=== PATIENT | female | born 1950 | race Caucasian/White ===

== ENCOUNTER 2016-11-02 14:53 | Emergency (ER) ==
[2016-11-02 15:05] VITALS: BP 132/82; TEMP 98.3; BMI 51.1
--- NOTE | 2016-11-02 15:42 | ED.PDOC ---
General ED Provider: Dr. ALAINA MCCOY Chief Complaint: Diabetes Stated Complaint: Patient is on steroids and has DM which makes her blood glucose uncontrolled. She was given a prescription of insulin which she could not fill due to her insurance. Time Seen by Physician: 15:33 Mode of Arrival: Walk-In Information Source: Patient Exam Limitations: No limitations Primary Care Provider: MARIKA OLIVEIRA Nursing and Triage Documentation Reviewed and Agree: Yes Endocrine Complaint Exam - Diabetic Complication Complaint/Exam Onset/Duration: 3 days Symptoms Are: Still present Timing: Constant Aggravating: Reports: Recent illness Alleviating: Reports: None Review of Systems - Review Of Systems Constitutional: Reports: No symptoms Eyes: Reports: No symptoms Ears, Nose, Mouth, Throat: Reports: No symptoms Respiratory: Reports: No symptoms Cardiac: Reports: No symptoms GI: Reports: No symptoms : Reports: No symptoms Musculoskeletal: Reports: Joint pain Skin: Reports: No symptoms Neurological: Reports: Anxiety Endocrine: Reports: No symptoms Hematologic/Lymphatic: Reports: No symptoms All Other Systems: Reviewed and Negative Past Medical History - Past Medical History Endocrine: Reports: DM 2, Hypothyroid, Dyslipidemia Cardiovascular: Reports: Hypertension Respiratory: Reports: None Hematological: Reports: None Gastrointestinal: Reports: None Genitourinary: Reports: None Neuro/Psych: Reports: Anxiety Musculoskeletal: Reports: None, Arthritis Cancer: Reports: Other Last Menstrual Period: unknown Other Pertinent Past Medical History: 2009 KNEE REPLACEMENT, REVISION 2011, SHOULDER SURG - Surgical History General Surgical History: Reports: Orthopedic ( 2009 KNEE REPLACEMENT, REVISION 2011, SHOULDER SURG) - Family History Family History: Reports: Unknown - Social History Smoking Status: Former smoker Hx Substance Use: No Alcohol Screening: None Physical Exam - Physical Exam Appearance: Well-appearing, Obese Eyes: ISABEL, EOMI, Conjunctiva clear ENT: Ears normal, Nose normal, Oropharynx normal Respiratory: Airway patent, Breath sounds clear, Breath sounds equal, Respirations nonlabored Cardiovascular: RRR, Pulses normal, No rub, No murmur GI/: Soft, Nontender, No masses, Bowel sounds normal, No Organomegaly Musculoskeletal: Normal strength, ROM intact, No edema, No calf tenderness Skin: Warm, Dry, Normal color Neurological: Sensation intact, Motor intact, Reflexes intact, Cranial nerves intact, Alert, Oriented Psychiatric: Affect appropriate, Mood appropriate Critical Care Note - Critical Care Note Total Time (mins): 0 Course - Course Orders, Labs, Meds: Orders Category Date Time Status ED ACCUCHECK ASSESSMENT .ONCE EMERGENCY 11/02/16 15:33 Active Insulin Regular, Human [Humulin R] MEDS 11/02/16 15:44 Discontinued 8 unit SUBCUT ONCE STA Medications Discontinued Medications Generic Name Dose Route Start Last Admin Trade Name Freq PRN Reason Stop Dose Admin Insulin Human Regular 8 unit 11/02/16 15:44 11/02/16 15:53 Humulin R SUBCUT 11/02/16 15:45 8 unit ONCE STA Administration Vital Signs: Temp Pulse Resp BP Pulse Ox 11/02/16 14:54 98.3 F 68 20 132/82 95 Departure - Departure Time of Disposition: 15:35 Disposition: HOME SELF-CARE Discharge Problem: Hyperglycemia due to type 2 diabetes mellitus, Arthritis Instructions: Diabetic Hyperglycemia (ED) Condition: Stable Pt referred to PMD for follow-up: Yes Additional Instructions: Fill your insulin and use it as needed per your doctors instruction Follow up with PCP in 3 days Prescriptions: Insulin Regular, Human [Novolin R] 100 unit IJ TID PRN #10 ml PRN Reason: Hyperglycemica Allergies/Adverse Reactions: Allergies metformin Adverse Reaction (Verified 10/31/15 15:58) Home Medications: Ambulatory Orders Carvedilol [Coreg] 12.5 mg PO BIDWM 10/31/15 Glipizide [Glipizide Xl] 10 mg PO BIDWM 10/31/15 Insulin Glargine,Hum.rec.anlog [Lantus] 55 unit SUBCUT BEDTIME 10/31/15 Lisinopril [Zestril] 40 mg PO DAILY 10/31/15 Pravastatin Sodium [Pravachol] 40 mg PO DAILY 10/31/15 Rivaroxaban [Xarelto] 20 mg PO 1800 10/31/15 Citalopram Hydrobromide [Celexa] 20 mg PO DAILY 06/14/16 Docusate Sodium [Colace] 100 mg PO DAILY 06/14/16 Ergocalciferol (Vitamin D2) [Drisdol] 50,000 units PO TUFR 06/14/16 Gabapentin [Neurontin] 300 mg PO TID 06/14/16 L.acidoph,Paracasei, B.lactis [Probiotic] 1 each PO DAILY 06/14/16 Levothyroxine Sodium [Synthroid] 150 mcg PO QDAC 06/14/16 Protection-3 Fatty Acids/Fish Oil [Fish Oil 1,000 mg Softgel] 1 cap PO DAILY LAB 03/22 Pantoprazole Sodium [Protonix] 40 mg PO DAILY #30 tablet. 06/20/16 Insulin Regular, Human [Novolin R] 100 unit IJ TID PRN #10 ml 11/02/16 Disposition Discussed With: Patient
[2016-11-02] MEDS ORDERED: HUMULIN R SUBCUT STA (15:44)
== END 2016-11-02 16:35 | disposition home or self-care (01) ==
LOC: ED 14:53
DX: E11.65 Type 2 diabetes mellitus with hyperglycemia (principal); M19.90 Unspecified osteoarthritis, unspecified site; Z79.899 Other long term (current) drug therapy; Z79.4 Long term (current) use of insulin
CPT/HCPCS: 82962; 96372; 99283

== ENCOUNTER 2017-01-24 09:22 | Outpatient (CLI) ==
[2017-01-24 10:09] LABS: PROTHROMBIN TIME 14.3 SEC (9.3-11.0)
== END 2017-01-24 09:23 | disposition home or self-care (01) ==
LOC: LAB 09:22
PROVIDERS: ATTEND Internal Medicine
DX: Z51.81 Encounter for therapeutic drug level monitoring (principal); Z79.01 Long term (current) use of anticoagulants; I48.0 Paroxysmal atrial fibrillation
CPT/HCPCS: 36415; 85610

== ENCOUNTER 2017-02-07 09:12 | Outpatient (CLI) | END 2017-02-07 09:13 | disposition home or self-care (01) | LOC: LAB 09:12 | PROVIDERS: ATTEND Internal Medicine | DX: I48.0 Paroxysmal atrial fibrillation (principal) | CPT/HCPCS: 36415; 85610 ==

== ENCOUNTER 2017-02-14 11:01 | Outpatient (CLI) ==
[2017-02-14 11:54] LABS: PROTHROMBIN TIME 21.4 SEC (9.3-11.0)
== END 2017-02-14 11:02 | disposition home or self-care (01) ==
LOC: LAB 11:01
PROVIDERS: ATTEND Internal Medicine
DX: Z51.81 Encounter for therapeutic drug level monitoring (principal); Z79.01 Long term (current) use of anticoagulants; I48.0 Paroxysmal atrial fibrillation
CPT/HCPCS: 36415; 85610

== ENCOUNTER 2017-12-14 17:05 | Emergency (ER) ==
[2017-12-14 17:10] VITALS: BP 150/116; TEMP 98.2; BMI 50.5
[2017-12-14] MEDS: SODIUM CHLORIDE 1,000 ML IV STA (17:45)
[2017-12-14] MEDS: ZOFRAN 4 MG/2 ML IVP STA (17:45)
[2017-12-14] MEDS: DILAUDID IVP STA (17:45)
--- NOTE | 2017-12-14 17:55 | CT ---
EXAM: CT abdomen pelvis without contrast HISTORY: Abdominal pain with nausea and vomiting COMPARISON: None TECHNIQUE: Serial axial images of the abdomen pelvis were performed from the lung bases through the inferior pelvis without contrast. These were viewed in multiple planes. FINDINGS: Lung bases are clear. Evaluation is limited due to lack of contrast. The liver is diffusely low in attenuation. The gallb ladder has been resected. Kidneys are normal. The adrenal glands are normal. The spleen is unremar kable. The pancreas is unremarkable. The stomach is distended. The small bowel in the abdomen pelvis is unremarkable with mild hazy ground-glass surrounding a small bowel loop extending into the umbilical hernia. There is no evidence of obstruction. There is dive rticulosis without diverticulitis. The appendix is normal. The small bowel in the anterior right lo wer lobe demonstrates mild hazy ground-glass. The pelvis demonstrates no acute abnormality with nond istended urinary bladder. The osseous structures demonstrate multilevel degenerative disease of the spine. IMPRESSION: 1. There is a loop of small bowel extending into a fat-containing umbilical hernia with minimal grou nd-glass. There is no visualized obstruction. 2. Mild hazy ground-glass surrounding the small bowel in the right lower pelvis with minimal wall th ickening may represent a component of enteritis. 3. Hepatic steatosis. 4. Diverticulosis without diverticulitis.
--- NOTE | 2017-12-14 18:05 | ED.PDOC ---
General ED Provider: Dr. MAURICE HSU-ER Chief Complaint: Nausea/Vomiting Stated Complaint: this is my 3rd visit in 6 weeks for this Time Seen by Physician: 17:10 Mode of Arrival: Walk-In Information Source: Patient Exam Limitations: No limitations Nursing and Triage Documentation Reviewed and Agree: Yes Reviewed sepsis parameters & appropriate labs ordered?: Yes System Inflammatory Response Syndrome: Not Applicable Sepsis Protocol: For patient's 13 years and over: Temp is 96.8 and below OR 101 and greater Pulse >90 BPM Resp >20/minute Acutely Altered Mental Status Are patient's symptoms suggestive of a new infection, such as: -Pneumonia -Skin, Soft Tissue -Endocarditis -UTI -Bone, Joint Infection -Implantable Device -Acute Abdominal Infection -Wound Infection -Meningitis -Blood Stream Catheter Infection -Unknown GI Complaint Exam - Vomiting/Diarrhea Complaint/Exam Onset/Duration: 2 hrs Symptoms Are: Still present Initial Severity: Mild Current Severity: Moderate Associated Signs and Symptoms: Reports: Abdominal pain, Cramping Recent Positive Test: No Use of Oral Contraceptives: No Use of Depoprovera: No Compliant With Contraceptive Use: No Surgical Obstruction Risk Factors: Reports: Colicky abdominal pain, Prior abdominal surgery Related Surgical History: Reports: Cholecystectomy Abdominal Findings: Present: None Kussmaul Respirations Present: No Differential Diagnoses: Dehydration, Viral Gastroenteritis Review of Systems - Review Of Systems Constitutional: Reports: No symptoms Eyes: Reports: No symptoms Ears, Nose, Mouth, Throat: Reports: No symptoms Respiratory: Reports: No symptoms Cardiac: Reports: No symptoms GI: Reports: Abdominal pain, Nausea, Vomiting : Reports: No symptoms Musculoskeletal: Reports: No symptoms Skin: Reports: No symptoms Neurological: Reports: No symptoms Endocrine: Reports: No symptoms Hematologic/Lymphatic: Reports: No symptoms All Other Systems: Reviewed and Negative Past Medical History - Past Medical History Previously Healthy: No Endocrine: Reports: DM 2, Hypothyroid, Dyslipidemia Cardiovascular: Reports: Hypertension Respiratory: Reports: None Hematological: Reports: None Gastrointestinal: Reports: None Genitourinary: Reports: None Neuro/Psych: Reports: Anxiety Musculoskeletal: Reports: None, Arthritis Cancer: Reports: Other Last Menstrual Period: N/A Other Pertinent Past Medical History: 2009 KNEE REPLACEMENT, REVISION 2011, SHOULDER SURG - Surgical History General Surgical History: Reports: Orthopedic ( 2009 KNEE REPLACEMENT, REVISION 2011, SHOULDER SURG) - Family History Family History: Reports: Unknown - Social History Smoking Status: Former smoker Hx Substance Use: No Alcohol Screening: None - Immunizations Tetanus Shot up to Date: No Physical Exam - Physical Exam Appearance: Well-appearing, No pain distress, Well-nourished Pain Distress: Moderate Eyes: ISABEL ENT: Ears normal, Nose normal, Oropharynx normal Neck: Supple Respiratory: Airway patent, Breath sounds clear, Breath sounds equal, Respirations nonlabored Cardiovascular: RRR, Pulses normal, No rub, No murmur GI/: Soft, No masses, Tender, Bowel sounds hypoactive Musculoskeletal: Normal strength Skin: Warm, Dry, Normal color Neurological: Sensation intact, Motor intact, Reflexes intact, Cranial nerves intact, Alert, Oriented Psychiatric: Affect appropriate, Mood appropriate, Anxious Interpretation - Radiology Interpretation Radiology Interpretation By: Radiologist Radiology Results: Positive Exam Interpreted: CT Scan - EKG Interpretation Time of EKG #1: 18:06 Rate: Normal Rhythm: Other Ectopy: None Norton: NL ST Segment: Normal Interpretation: afib Re-Evaluation - Re-Evaluation Time of Re-Evaluation: 18:06 Status: Improved Vital Signs Stable: Yes Pain Level: 2 Appearance: NAD Lungs: Clear Skin: Warm and Dry Neuro: Alert and Oriented X3 CV: RRR Physician Notification - Case Discussed Physician Notified: dr greene Time of Notification: 18:13 Critical Care Note - Critical Care Note Total Time (mins): 0 Course - Course Hematology/Chemistry: 12/14/17 17:20 12/14/17 17:20 Orders, Labs, Meds: Lab Review 12/14/17 12/14/17 17:20 17:20 WBC 17.68 H RBC 5.48 H Hgb 15.5 Hct 44.8 MCV 81.8 MCH 28.3 MCHC 34.6 RDW Coeff of Michael 13.8 Plt Count 226 Immature Gran % (Auto) 0.4 Neut % (Auto) 86.2 Lymph % (Auto) 8.4 L Burt % (Auto) 4.2 Eos % (Auto) 0.6 Baso % (Auto) 0.2 Immature Gran # (Auto) 0.1 Neut # (Auto) 15.3 H Lymph # (Auto) 1.5 Burt # (Auto) 0.7 Eos # (Auto) 0.1 Baso # (Auto) 0.0 Sodium 139 Potassium 4.0 Chloride 111 H Carbon Dioxide 18 L Anion Gap 14.0 BUN 16 Creatinine 0.76 Estimated GFR (MDRD) 76.00 BUN/Creatinine Ratio 21.05 Glucose 195 H Calcium 10.0 Total Bilirubin 0.9 AST 50 H ALT 63 Alkaline Phosphatase 85 Total Creatine Kinase 64 Troponin I < 0.0100 Total Protein 7.5 Albumin 3.8 Globulin 3.7 Albumin/Globulin Ratio 1.03 Amylase 33 Lipase 17 Orders Category Date Time Status EKG-(ED ONLY) Stat CARDIO 12/14/17 17:13 Ordered IV [ED IV/MEDIPORT/POWERPORT] .ONCE EMERGENCY 12/14/17 17:14 Active AMYLASE Stat LAB 12/14/17 17:20 Completed CBC W/ AUTO DIFF Stat LAB 12/14/17 17:20 Completed COMPREHENSIVE METABOLIC PANEL Stat LAB 12/14/17 17:20 Completed CREATINE KINASE Stat LAB 12/14/17 17:20 Completed LIPASE Stat LAB 12/14/17 17:20 Completed TROPONIN I Stat LAB 12/14/17 17:20 Completed URINALYSIS C & S IF INDICATED Stat LAB 12/14/17 17:13 Uncollected 0.9 % Sodium Chloride [Saline Flush] MEDS 12/14/17 17:14 Ordered 1 syr IVF PRN PRN Hydromorphone HCl [Dilaudid] MEDS 12/14/17 17:14 Discontinued 1 mg IVP ONCE STA Ondansetron HCl/Pf [Zofran 4 mg/2 ml] MEDS 12/14/17 17:14 Discontinued 4 mg IVP ONCE STA Sodium Chloride 0.9% [Sodium Chloride] 1,000 ml MEDS 12/14/17 17:[address] ABDOMEN/PELVIS WO CONTRAST Stat RADS 12/14/17 17:15 Completed Medications Generic Name Dose Route Start Last Admin Trade Name Freq PRN Reason Stop Dose Admin Sodium Chloride 1 syr 12/14/17 17:14 Saline Flush IVF PRN PRN To flush IV Discontinued Medications Generic Name Dose Route Start Last Admin Trade Name Freq PRN Reason Stop Dose Admin Hydromorphone HCl 1 mg 12/14/17 17:14 12/14/17 17:45 Dilaudid IVP 12/14/17 17:15 1 mg ONCE STA Administration Sodium Chloride 1,000 mls @ 1,000 mls/hr 12/14/17 17:14 12/14/17 17:45 Sodium Chloride IV 12/14/17 18:13 1,000 mls/hr BOLUS STA Administration Ondansetron HCl 4 mg 12/14/17 17:14 12/14/17 17:45 Zofran 4 Mg/2 Ml IVP 12/14/17 17:15 4 mg ONCE STA Administration Vital Signs: Temp Pulse Resp BP Pulse Ox 12/14/17 17:06 98.2 F 94 H 16 150/116 H 96 Departure - Departure Time of Disposition: 18:14 Disposition: TSF SHORT-TRM HOSP Discharge Problem: Umbilical hernia without obstruction and without gangrene Instructions: Umbilical Hernia (ED) Condition: Good Pt referred to PMD for follow-up: Yes IPMP verified?: No Allergies/Adverse Reactions: Allergies metformin Adverse Reaction (Verified 12/14/17 17:10) Home Medications: Ambulatory Orders Carvedilol [Coreg] 12.5 mg PO BIDWM 10/31/15 Glipizide [Glipizide Xl] 10 mg PO BIDWM 10/31/15 Insulin Glargine,Hum.rec.anlog [Lantus] 55 unit SUBCUT BEDTIME 10/31/15 Lisinopril [Zestril] 40 mg PO DAILY 10/31/15 Pravastatin Sodium [Pravachol] 40 mg PO DAILY 10/31/15 Rivaroxaban [Xarelto] 20 mg PO 1800 10/31/15 Docusate Sodium [Colace] 100 mg PO DAILY 06/14/16 Ergocalciferol (Vitamin D2) [Drisdol] 50,000 units PO TUFR 06/14/16 Gabapentin [Neurontin] 300 mg PO TID 06/14/16 L.acidoph,Paracasei, B.lactis [Probiotic] 1 each PO DAILY 06/14/16 Levothyroxine Sodium [Synthroid] 150 mcg PO QDAC 06/14/16 Archbold-3 Fatty Acids/Fish Oil [Fish Oil 1,000 mg Softgel] 1 cap PO DAILY LAB 03/22 Pantoprazole Sodium [Protonix] 40 mg PO DAILY #30 tablet.dr 06/20/16 Insulin Regular, Human [Novolin R] 100 unit IJ TID PRN #10 ml 11/02/16 Duloxetine HCl [Cymbalta] 20 mg PO DAILY 12/14/17 Disposition Discussed With: Patient
== END 2017-12-14 18:36 | disposition short-term general hospital (02) ==
LOC: ED 17:05
DX: K42.9 Umbilical hernia without obstruction or gangrene (principal); R11.2 Nausea with vomiting, unspecified; R10.9 Unspecified abdominal pain; I10 Essential (primary) hypertension; E78.5 Hyperlipidemia, unspecified; E11.9 Type 2 diabetes mellitus without complications; E03.9 Hypothyroidism, unspecified; Z79.899 Other long term (current) drug therapy
CPT/HCPCS: 36415; 80053; 82150; 82550; 83690; 84484; 85025; 93005; 93010; 96360; 96375; 99285

== ENCOUNTER 2018-10-30 18:17 | Emergency (ER) | payer OTHER ==
[2018-10-30 18:22] VITALS: TEMP 100.2; BMI 51.1
--- NOTE | 2018-10-30 18:35 | ED.PDOC ---
General Stated Complaint: 67 y old pleasant lady who already had a torn left rotator cuff and was scheduled for an ortho kemi in copuple of weeks with MRI-fell today in the garden and sort of crushefd on her left side straining arm from shoulder to hand.Apparently no fracture,No suspicious cuts or lacerations or bruises,Pain and concern about her arm.Toradol 3o mg im. Mode of Arrival: Ambulance Information Source: Patient, EMT Exam Limitations: No limitations Nursing and Triage Documentation Reviewed and Agree: Yes System Inflammatory Response Syndrome: Not Applicable <REE HENDRICKSON - Last Filed: 10/30/18 19:46> Time Seen by Physician: 18:24 Nursing and Triage Documentation Reviewed and Agree: Yes Does patient meet sepsis criteria?: No If yes, has appropriate treatment been initiated?: Yes <MAURCIE STUART - Last Filed: 10/30/18 20:24> ED Provider: Dr. MAURICE STUART MD Chief Complaint: Fall Primary Care Provider: MARIKA OLIVEIRA Sepsis Protocol: For patient's 13 years and over: Temp is 96.8 and below OR 101 and greater Pulse >90 BPM Resp >20/minute Acutely Altered Mental Status Are patient's symptoms suggestive of a new infection, such as: -Pneumonia -Skin, Soft Tissue -Endocarditis -UTI -Bone, Joint Infection -Implantable Device -Acute Abdominal Infection -Wound Infection -Meningitis -Blood Stream Catheter Infection -Unknown Musculoskeletal Complaint Exam - Shoulder Pain Complaint/Exam Onset/Duration: today Initial Severity: Moderate Current Severity: Moderate Location: Reports: Diffuse Character: Reports: Aching Alleviating: Reports: Rest Aggravating: Reports: Movement Associated Signs and Symptoms: Reports: Swelling, Weakness Related History: Reports: Similar episode Non-Orthopedic Risk Factors: Reports: None DVT Risk Factors: Reports: None Septic Arthritis Risk Factors: Reports: None Related Surgical History: Reports: None Shoulder Findings: Present: Swelling, Other joint pain Tenderness: Present: Rotator cuff muscles Limited Range of Motion: Present: Abduction, Adduction, Flexion, Extension Differential Diagnoses: Contusion, Dislocation, Closed Fracture, Sprain, Strain <REE HENDRICKSON - Last Filed: 10/30/18 19:46> Review of Systems - Review Of Systems Constitutional: Reports: No symptoms Eyes: Reports: No symptoms Ears, Nose, Mouth, Throat: Reports: No symptoms Respiratory: Reports: No symptoms Cardiac: Reports: No symptoms GI: Reports: No symptoms : Reports: No symptoms Musculoskeletal: Reports: Joint pain, Muscle pain, Muscle stiffness, Other ( left arm muscular aches) <REE HENDRICKSON - Last Filed: 10/30/18 19:46> - Review Of Systems Skin: Reports: No symptoms Neurological: Reports: No symptoms Endocrine: Reports: No symptoms Hematologic/Lymphatic: Reports: No symptoms All Other Systems: Reviewed and Negative <MAURICE STUART - Last Filed: 10/30/18 20:24> Past Medical History - Past Medical History Previously Healthy: No Endocrine: Reports: DM 2, Hypothyroid, Dyslipidemia Cardiovascular: Reports: Hypertension Respiratory: Reports: None Hematological: Reports: None Gastrointestinal: Reports: None Genitourinary: Reports: None Neuro/Psych: Reports: Anxiety Musculoskeletal: Reports: None, Arthritis Cancer: Reports: Other Last Menstrual Period: n/a Other Pertinent Past Medical History: 2008 KNEE REPLACEMENT, REVISION 2010, SHOULDER SURG - Surgical History General Surgical History: Reports: Orthopedic ( 2008 KNEE REPLACEMENT, REVISION 2010, SHOULDER SURG) - Family History Family History: Reports: Unknown - Social History Smoking Status: Former smoker Hx Substance Use: No Alcohol Screening: None <REE HENDRICKSON - Last Filed: 10/30/18 19:46> Physical Exam - Physical Exam Appearance: Well-appearing, Obese Ill-appearing: Mild Pain Distress: Moderate Eyes: ISABEL ENT: Ears normal Neck: Supple Respiratory: Airway patent, Breath sounds clear, Respirations nonlabored Cardiovascular: RRR, Pulses normal, No rub GI/: Nontender Musculoskeletal: Limited ROM, Limited strength Skin: Warm, Dry Neurological: Sensation intact Psychiatric: Affect appropriate <REE HENDRICKSON - Last Filed: 10/30/18 19:46> Physician Notification - Case Discussed Physician Notified: Dr Wilian PHAM Time of Notification: 19:47 <REE HENDRICKSON - Last Filed: 10/30/18 19:46> Critical Care Note - Critical Care Note Total Time (mins): 0 <MAURICE STUART - Last Filed: 10/30/18 20:24> - Course Orders, Labs, Meds: Orders Category Date Time Status Splint [ED SPLINT APPLICATION] .ONCE EMERGENCY 10/30/18 19:12 Active Ketorolac Tromethamine [Toradol] MEDS 10/30/18 18:43 Discontinued 30 mg IM ONCE STA CT FOREARM LEFT WO CONTRAST Stat RADS 10/30/18 18:[address] SHOULDER LEFT W/O CONTRAST Stat RADS 10/30/18 18:39 Completed HAND, LEFT 3 VIEWS Stat RADS 10/30/18 18:42 Completed Medications Discontinued Medications Generic Name Dose Route Start Last Admin Trade Name Isaiah PRN Reason Stop Dose Admin Ketorolac Tromethamine 30 mg 10/30/18 18:43 10/30/18 19:19 Toradol IM 10/30/18 18:44 30 mg ONCE STA Administration Vital Signs: Temp Pulse Resp BP Pulse Ox 10/30/18 18:51 136/84 96 10/30/18 18:18 100.2 F H 74 20 130/74 97 Departure - Departure Pt referred to PMD for follow-up: Yes (has f./u with orthopedics,MRI and r cuff t.) IPMP verified?: No Disposition Discussed With: Patient <REE HENDRICKSON - Last Filed: 10/30/18 19:46> - Departure Time of Disposition: 20:30 Transfer Form Completed: No Disposition Discussed With: Patient <WILIANMAURICE - Last Filed: 10/30/18 20:24> - Departure Disposition: HOME SELF-CARE Discharge Problem: Rotator cuff tear Qualifiers: Rotator cuff tear extent: unspecified tear extent Encounter type: subsequent encounter Laterality: left Instructions: Shoulder Sprain (ED) Condition: Good Additional Instructions: has home pain meds Allergies/Adverse Reactions: Allergies metformin Adverse Reaction (Verified 10/30/18 18:22) Vomiting Home Medications: Ambulatory Orders Carvedilol [Coreg] 12.5 mg PO BIDWM 10/31/15 Glipizide [Glipizide Xl] 10 mg PO BIDWM 10/31/15 Insulin Glargine,Hum.rec.anlog [Lantus] 100 unit SUBCUT BEDTIME 10/31/15 Lisinopril [Zestril] 40 mg PO DAILY 10/31/15 Pravastatin Sodium [Pravachol] 40 mg PO DAILY 10/31/15 Rivaroxaban [Xarelto] 20 mg PO 1800 10/31/15 Gabapentin [Neurontin] 600 mg PO TID 06/14/16 L.acidoph,Paracasei, B.lactis [Probiotic] 1 each PO DAILY 06/14/16 Levothyroxine Sodium [Synthroid] 150 mcg PO QDAC 06/14/16 Pantoprazole Sodium [Protonix] 40 mg PO DAILY #30 tablet. 06/20/16 Duloxetine HCl [Cymbalta] 60 mg PO DAILY 12/14/17 Liraglutide [Victoza 3-Gonzalo] 0.6 mg SQ DIRECTED 06/24/18 Hydrocodone Bit/Acetaminophen [[place]t 7.5-325] 1 tab PO TID PRN 10/30/18 Insulin Regular, Human [Novolin R] 0 unit IJ TID PRN 10/30/18
[2018-10-30] MEDS ORDERED: TORADOL IM STA (18:43)
[2018-10-30 18:51] VITALS: BP 136/84
--- NOTE | 2018-10-30 19:52 | DI ---
EXAM: Three views of the left hand HISTORY: Fall, pain TECHNIQUE: AP lateral, oblique views of the left hand were obtained. FINDINGS: No acute fractures are seen. There is moderate to severe loss of joint space seen within the distal interphalangeal joints of the second, third, fourth, fifth digits. There is additional pr ominent loss of joint space seen within the carpal metacarpal articulation of the thumb. The soft ti ssues appear within normal limits. IMPRESSION: No acute fracture dislocation seen within the left hand. Advance arthritis of the left hand and lateral left wrist as described above.
--- NOTE | 2018-10-30 19:53 | CT ---
EXAM: CT scan of the left shoulder without contrast HISTORY: Fall, pain TECHNIQUE: Imaging of the left shoulder was performed without contrast. Axial images and coronal an d sagittal reconstructions were provided for interpretation. FINDINGS: The humeral head is seen in normal position. The scapula appears intact. No acute fractu res are seen within the visualized proximal left humerus. The visualized left clavicle appears intac t. IMPRESSION: No acute fracture dislocation seen within the left shoulder.
--- NOTE | 2018-10-30 19:58 | CT ---
Exam: CT of the left forearm without intravenous contrast. 3-D reformatted images were five for int erpretation. Comparison: Left wrist x-ray performed 10/31/2015. Reason for exam: Fall. FINDINGS: No acute fracture or malalignment is seen in the left forearm. Image interpretation is li mited by motion and attenuation artifact. There is joint space narrowing seen in the elbow. No unex plained calcific soft tissue density or radiopaque retained foreign body. Impression: No obvious fracture or malalignment is seen in the left forearm. Recommend x-rays of the left forear m and elbow if there is clinical concern for osseous injury.
== END 2018-10-30 21:17 | disposition home or self-care (01) ==
LOC: ED 18:17
DX: M75.102 Unspecified rotator cuff tear or rupture of left shoulder, not specified as traumatic (principal); S49.92XA Unspecified injury of left shoulder and upper arm, initial encounter; W19.XXXA Unspecified fall, initial encounter
CPT/HCPCS: 99283